=== PATIENT | female | born 1965 | race Caucasian/White ===

== ENCOUNTER 2019-05-29 06:26 | Emergency (ER) | payer BC, SELFPAY ==
[2019-05-29 06:27] VITALS: BP 153/87; PULSE 90; RESP 18; TEMP 36.9; O2SAT 95; BMI 18.5
[2019-05-29 06:30] VITALS: O2SAT 96
--- NOTE | 2019-05-29 07:02 | RAD_ITS ---
STUDY: X-RAY CHEST REASON FOR EXAM: Female, 54 years old. Cough TECHNIQUE: PA and lateral chest COMPARISON: None. FINDINGS: There are significant bilateral large bulla. There is scattered pulmonary scarring. There is no demonstrated pleural abnormality. Normal size heart. Normal mediastinum and yulia. Normal visualized pulmonary arteries. Normal visualized aortic arch and descending thoracic aorta. Normal visualized thoracic spine. Normal visualized ribs, clavicles, and shoulders. There is no demonstrated abnormality of the visualized soft tissue structures of the upper abdomen. RAD/Chest PA and Lateral IMPRESSION: Significant COPD changes with large bilateral bulla, scattered pulmonary scarring Electronically Signed: Galileo Barros, at 7:30 EDT Tel , Service support ,
--- NOTE | 2019-05-29 07:10 | ED.VIS.GEN ---
History of Present Illness Chief Complaint: Shortness of Breath Detail of Chief Complaint: Dry cough and unable to take a complete breath Informant: Patient Onset: Yesterday Context: Sudden Onset Timing: Intermittent Quality: Malaise, dry cough and shortness of breath Location: Respiratory Current Severity: Mild Maximum Severity: Moderate Worsened by: Nothing Relieved by: Nothing Associated Symptoms: Rhinorrhea and congestion Narrative: Patient is a 54-year-old woman with no sniffing past medical history who presents to the [facility] complaining of malaise, nonproductive cough and shortness of breath. Patient did find shortness of breath as difficulty taking a complete breath. She denies chest pain of any type including pleuritic. There is no history of PE or DVT. She denies leg pain, swelling discoloration. She denies fever. She states she was chilled last evening; however, she states she is always cold. She denies weight gain or weight loss. She has history of bronchitis and pneumonia. She does not have a history of COPD. She is a smoker 1 pack/day for many years. She has no risk factors for PE. Prior similar symptoms: Yes Recent Illness/Hospitalization: No - Past Medical History (1) No significant past medical history Status: Acute Past Medical History Primary Care Physician: Jhonatan Farrar MD [STAFF PHYSICIAN] - Israel Gonzales MD [Primary Care Provider] - Keep Jacinto appointment Prior records reviewed: Yes - Per patient pneumonia and bronchitis Surgical History: no surgical history Lives: Spouse/ Significant Other Smoking Status: Current every day smoker Alcohol: Rare Drugs: None Review of Systems General: Reports: Malaise. Denies: Chills, Fever, Sweats, Weight loss Eyes: Denies: Visual changes - bilaterally, Blurred Vision - bilaterally, Diplopia ENT: Reports: Rhinorrhea. Denies: Bilateral ear pain, Sore throat Cardiovascular: Denies: Chest pain, Palpitations, Heart racing Respiratory: Reports: Dyspnea, Cough, Dyspnea on exertion. Denies: Sputum, Orthopnea, Paroxysmal nocturnal dyspnea Gastrointestinal: Denies: Abdominal pain, Nausea, Vomiting, Diarrhea, Melena, Hematochezia Genitourinary: Denies: Dysuria, Hematuria, Frequency Musculoskeletal: Denies: Myalgias, Arthralgias, Neck pain, Back pain, Swelling, Extremity Pain Skin: Denies: Rash, Wounds Neurological: Reports: Weakness. Denies: Headache Hematologic: Denies: Easy bruising, Easy bleeding Allergy: Denies: Uticaria, Swelling of the mouth Physical Exam Vital Signs/Narrative: Vital Signs Temp Pulse Resp BP Pulse Ox 05/29/19 06:27 98.4 F 90 18 153/87 H 95 Inital Vital Signs reviewed: Yes General: Well nourished, Well developed, No Acute Distress Head: Normocephalic, Atraumatic Eyes: Perrl, EOMI. Negative for: Pale conjunctiva, Scleral icterus ENT: Moist mucous membranes, No rhinorrhea, TM's clear Neck: Supple, Nontender, No lymphadenopathy, No JVD Cardiovascular: Regular rate, Regular rhythm, No murmurs, Normal S1, Normal S2 Respiratory: No distress, Chest nontender, Wheezing - With forced expiration only. There is decreased air movement., Decreased Air Movement Abdomen: Soft, Nontender, Nondistended, Normal bowel sounds Back: Nontender, Normal Inspection Extremities: Nontender, No edema, - - There is no asymmetry, swelling, discoloration, leg vein distention, palpable cords or tenderness along the distribution of the deep venous system. DP and PT pulses are palpable. Skin: Normal color, No rash, No Trauma. Negative for: Cyanosis, Diaphoresis, Jaundice Neurological: Alert, Oriented x3, Cranial nerves II-XII grossly intact, Normal Strength, Normal Sensation Psychological: Normal affect, Normal Mood Diagnostic/Tx/Re-eval Chest X-Ray - ED: 2 View, Read by ED Physician, Normal, Heart, Mediastinum, Bony Structures, Chronic Changes, Right Effusion, - - Patient has a small effusion on the right. There is no evidence of pneumothorax. There is no infiltrate noted. Patient has hyper aeration and scalloping of the diaphragm consistent with COPD. Time of my interpretation 0728 Impressions Chest X-Ray 05/29/19 07:02 IMPRESSION: Significant COPD changes with large bilateral bulla, scattered pulmonary scarring Electronically Signed: Galileo Barros, at 7:30 EDT Tel , Service support , 05/29/19 07:02 Chest PA and Lateral [RAD] Stat Laboratory Results 05/29/19 05/29/19 07:20 07:20 WBC 8.6 RBC 5.65 H Hgb 17.0 H Hct 52.6 H MCV 93.1 MCH 30.1 MCHC 32.3 RDW Std Deviation 46.8 H RDW Coeff of Rolf 13.7 Plt Count 245 MPV 10.0 Immature Gran % (Auto) 0.500 Neut % (Auto) 76.8 H Lymph % (Auto) 17.0 L [place] % (Auto) 5.1 Eos % (Auto) 0.2 Baso % (Auto) 0.4 Absolute Neuts (auto) 6.6 Absolute Lymphs (auto) 1.46 Nucleated RBC % 0 Sodium 141 Potassium 3.9 Chloride 105 Carbon Dioxide 32.0 Anion Gap 4 L BUN 6 L Creatinine 0.81 Estim Creat Clear Calc 52.77 Est GFR (MDRD) Af Amer 94 Est GFR (MDRD) Non-Af 78 BUN/Creatinine Ratio 7.4 L Glucose 104 Calcium 9.9 - Medical Decision Making With history of smoking 1 pack/day for many years and prior history of pneumonia will obtain chest x-ray to assess for pneumonia versus bronchitis versus exacerbation of COPD. CBC and BMP were obtained for risk stratification reasons and to determine renal function if the CTA is needed. She was treated with DuoNeb and albuterol. Will reassess once x-ray and labs are back. Patient was reassessed at 0800. Minimal wheeze with forced expiration on right only. Will discharge with prescription for prednisone burst, albuterol and Advair. ED Disposition - Plan for ED Patient: Disposition: Home or Assisted Living Diagnosis: COPD with acute exacerbation Instructions: Copd Flare Prescriptions: Fluticasone/Salmeterol [Advair 100-50 Diskus] 1 ea IH BID #1 blst.w.dev Prescription Printed Prednisone [Deltasone] 40 mg PO DAILY #10 tab Prescription Printed Albuterol Inhaler [Ventolin Hfa] 2 puff INHALATION Q4H PRN PRN #1 inhaler PRN Reason: Wheezing Prescription Printed Referrals: Jhonatan Farrar MD [STAFF PHYSICIAN] - Israel Gonzales MD [Primary Care Provider] - Keep Jacinto appointment Additional Instructions: It is in your best interest to stop smoking.
[2019-05-29] MEDS: Ipratropium/Albuterol Sulfate 3 ML AMPUL.NEB INHALATION (07:24)
[2019-05-29 07:26] VITALS: PULSE 86; RESP 12
[2019-05-29 07:28] LABS: Absolute Lymphocyte Count 1.46 X10^3/uL (0.83-4.51); Absolute Neutrophil Count 6.6 X10^3/uL (2.0-7.7); Basophil# 0.03 X10^3/uL; Basophil% 0.4 % (0-1); Eosinophil# 0.02 X10^3/uL; Eosinophils% 0.2 % (0-5); Hematocrit 52.6 % (37-47); Lymphocyte # 1.46 X10^3/ul (4.0); Mean Corp Hgb Conc 32.3 g/dL (32-36); Mean Corpuscular Hgb 30.1 pg (27.0-32.0); Mean Corpuscular Volume 93.1 fL (81-99); Monocyte# 0.44 X10^3/uL; Monocyte% 5.1 % (0-10); NRBC Flagged by Analyzer 0 % (0-5); Neutrophil # 6.58 X10^3/uL (2.7-7.7); Neutrophil % 76.8 % (47-70); Platelet Count 245 K/mm3 (150-450); RBC Distribution Width CV 13.7 % (11.6-14.6); RBC Distribution Width SD 46.8 fl (35.1-43.9); Red Blood Count 5.65 M/mm3 (4.2-5.4); White Blood Count 8.6 K/mm3 (4.4-11.0)
[2019-05-29 07:38] LABS: Anion Gap 4 (5-15); BUN 6 mg/dL (7-18); BUN/Creat Ratio 7.4 RATIO (10-20); Calcium,Total 9.9 mg/dL (8.5-10.1); Chloride 105 mmol/L (98-107); Creatinine, Serum 0.81 mg/dL (0.55-1.02); EST Glomerular Filtration Rate 78 mL/min (>60); Est Glom Filt Rate - Afr Amer 94 mL/min (>60); Estimated Creatinine Clearance 52.77 ml/min; Glucose 104 mg/dL (74-106); Potassium 3.9 mmol/L (3.5-5.1); Sodium Level 141 mmol/L (136-145)
[2019-05-29] MEDS: Albuterol 2.5 MG/3 ML VIAL.NEB. INHALATION ×3 (07:38)
[2019-05-29 07:40] VITALS: PULSE 92; RESP 18
== END 2019-05-29 08:21 | disposition home or self-care (01) ==
PROVIDERS: Emergency Provider Emergency Medicine; Family Provider Family Medicine; PCP Family Medicine
DX: J44.1 Chronic obstructive pulmonary disease with (acute) exacerbation (principal); F17.200 Nicotine dependence, unspecified, uncomplicated
CPT/HCPCS: 71046; 80048; 85025; 94640; 99283; A4216